=== PATIENT | female | born 1950 | race African-American/Black ===

== ENCOUNTER → 2017-11-20 | Outpatient (CLI) | payer MEDICARE, OTHER | END | disposition home or self-care (01) | LOC: KCIC MRI 13:14 | DX: M50.323 Other cervical disc degeneration at C6-C7 level (principal); M43.12 Spondylolisthesis, cervical region; M47.892 Other spondylosis, cervical region; M25.78 Osteophyte, vertebrae; M48.02 Spinal stenosis, cervical region; D18.09 Hemangioma of other sites | CPT/HCPCS: 72141 ==